=== PATIENT | male | born 2000 | race Two or more races ===

== ENCOUNTER → 2025-01-09 | Outpatient (CLI) | payer OTHER, SELFPAY ==
--- NOTE | 2025-01-09 12:12 | XR_ITS ---
Examination: Nasal bone series 3 views TECHNIQUE: Amado, right left lateral nasal bones 3 views Exam date and time: January 09, 2025 1319 hours INDICATIONS: Injury to the nose today, numbness pain FINDINGS: Acute fracture bridge of the nose with minimal dorsal angulation No offset Orbital rims intact IMPRESSION: Acute nasal bone fracture
== END | disposition home or self-care (01) ==
PROVIDERS: PCP Internal Medicine
DX: S02.2XXA Fracture of nasal bones, initial encounter for closed fracture (principal); X58.XXXA Exposure to other specified factors, initial encounter
CPT/HCPCS: 70160